=== PATIENT | male | born 2000 | race Caucasian/White ===

== ENCOUNTER 2021-05-30 10:22 | Emergency (ER) | payer SELFPAY ==
[2021-05-30] MEDS ORDERED: Cyclobenzaprine 10 MG TAB ONE (11:21)
[2021-05-30] MEDS ORDERED: Ketorolac Tromethamine 30 MG/ML VIAL ONE (11:21)
== END 2021-05-30 11:48 | disposition home or self-care (01) ==
LOC: ERS 10:22
DX: S76.012A Strain of muscle, fascia and tendon of left hip, initial encounter (principal); S76.011A Strain of muscle, fascia and tendon of right hip, initial encounter; X58.XXXA Exposure to other specified factors, initial encounter; M25.551 Pain in right hip; M25.552 Pain in left hip; Y93.64 Activity, baseball; F17.200 Nicotine dependence, unspecified, uncomplicated
CPT/HCPCS: 96372; 99283; J1885

== ENCOUNTER 2021-06-14 17:41 | Emergency (ER) | payer SELFPAY | END 2021-06-14 18:59 | disposition left against medical advice (07) | LOC: ERS 17:41 | DX: Z53.21 Procedure and treatment not carried out due to patient leaving prior to being seen by health care provider (principal) | CPT/HCPCS: 71045 ==

== ENCOUNTER 2021-06-15 11:20 | Emergency (ER) | payer SELFPAY | END 2021-06-15 13:25 | disposition home or self-care (01) | LOC: ERS 11:20 | DX: M62.830 Muscle spasm of back (principal); F17.210 Nicotine dependence, cigarettes, uncomplicated | CPT/HCPCS: 71045 ==